=== PATIENT | male | born 1975 | race African-American/Black ===

== ENCOUNTER 2019-12-25 10:38 | Emergency (ER) | payer BC ==
[~2019-12-25] VITALS: Ht 170.2 cm; Wt 70.9 kg
[2019-12-25 10:42] VITALS: BP 190/107
--- NOTE | 2019-12-25 11:40 | PHYS DOC ---
Past History Past Medical History: No Pertinent History Past Surgical History: No Surgical History Smoking: Cigarettes Alcohol Use: Occasionally Drug Use: Marijuana General Adult EDM: Chief Complaint: UPPER EXTREMITY PAIN HPI: HPI: 44 year old male presents with report of pain to base of left thumb x 1 month. Reports initially punched a door which caused his hand to swell. Reports he never had the hand looked at. Reports swelling improved but still had pain to area. Reports worse when he has been working. Denies numbness. Denies recent trauma. Review of Systems: Review of Systems: Constitutional: Denies fever or chills Eyes: Denies redness or discharge HENT: Denies nasal congestion or sore throat Respiratory: Denies cough or shortness of breath Cardiovascular: Denies chest pain or palpitations GI: Denies abdominal pain, nausea, vomiting, or diarrhea : Denies dysuria or hematuria Musculoskeletal: Denies back pain; reports pain to base of left thumb Integument: Denies rash or skin lesion Neurologic: Denies headache, focal weakness or sensory changes Psychiatric: Denies depression or anxiety Complete systems were reviewed and found to be within normal limits, except as documented in this note. Current Medications: Current Meds: Current Medications Medications (Trade) Dose Ordered Sig/Karen Start Time Stop Time Status Last Admin Dose Admin Dexamethasone (Decadron) 10 mg 1X ONCE 12/25/19 11:15 12/25/19 11:16 UNV Physical Exam: PE: Constitutional: Well developed, well nourished, no acute distress, non-toxic appearance HENT: Normocephalic, atraumatic Eyes: Conjunctiva normal, no discharge Neck: Normal range of motion, no tenderness, supple Cardiovascular: Left radial pulse +2, CR < 2 sec Lungs & Thorax: No respiratory distress, equal chest rise and fall Skin: Warm, dry, no erythema, no rash Extremities: Left thumb pain on ROM. Interphalangeal tenderness, ROM intact, positive Ashley test Neurologic: Alert and oriented X 3, no focal deficits noted Psychologic: Affect normal, judgement normal EKG: EKG: [] Radiology/Procedures: Radiology/Procedures: PROCEDURE: HAND LEFT 3V Examination: HAND LEFT 3V History: Left thumb pain Comparison/Correlation: None Findings: 3 images of the left hand were obtained. Remodeling of the first carpometacarpal joint is notable. Remodeling in particular of the trapezium is present with spurring laterally. No displaced fracture or bone destruction. Soft tissues are unremarkable. Joint spaces otherwise unremarkable. Impression: Left first carpometacarpal joint degenerative findings are advanced for the patient's age. Electronically signed by: Lonnie Daugherty MD (12/25/2019 11:35 AM) [id number] Course & Med Decision Making: Course & Med Decision Making Pertinent Imaging studies reviewed. (See chart for details) Patient presents with 1 month history of pain to base of left thumb. Positive Ashley sign. Pain addressed. X-ray obtained without acute fracture or dislocation. Arthritis noted. Emeka bandage applied for comfort. Patient stable for discharge home with outpatient follow-up with PCP. Discussed findings and plan with patient, who acknowledges understanding and agreement. [email or web address] Disclaimer: Anastacio Disclaimer: This electronic medical record was generated, in whole or in part, using a voice recognition dictation system. Splinting Splinting : Location: left hand Pre-Made Type: EMEKA bandage Pre-Proc Neuro Vasc Exam: normal Post-Proc Neuro Vasc Exam: normal, unchanged from pre-exam Departure Departure: Impression: Primary Impression: Pain of left thumb Additional Impression: Arthritis Disposition: 01 HOME/RESIDENCE PRIOR TO ADM Condition: STABLE Referrals: PCP,NO (PCP) Patient Instructions: Arthritis, Nonspecific, [id number], De Quervain's Tenosynovitis-SportsMed Additional Instructions: ICE area 20 min on then leave off next 20 min. Repeat as needed for next few days. Take anti-inflammatories as needed. May also use over the counter Tylenol as needed. Wear EMEKA wrap or purchase thumb spica splint. Scripts Naproxen (NAPROXEN) 375 Mg Tablet. 375 MG PO TID PRN PRN for PAIN, #30 TAB Prov: ALVARO BOUCHER DO 12/25/19 ALVARO BOUCHER DO December 25, 2019 11:40
[2019-12-25] MEDS ORDERED: NAPR375T5 PO (11:46)
[2019-12-25] MEDS ORDERED: DEXAMETHASONE 4 MG TABLET PO ONE (12:00)
== END 2019-12-25 11:59 | disposition home or self-care (01) ==
LOC: ER 10:38
DX: M19.042 Primary osteoarthritis, left hand (principal); M79.645 Pain in left finger(s); F17.210 Nicotine dependence, cigarettes, uncomplicated
CPT/HCPCS: 29125; 73130; 99283; J8540

== ENCOUNTER 2020-06-01 14:19 | Emergency (ER) | payer BC ==
[~2020-06-01] VITALS: Ht 170.2 cm; Wt 76.5 kg
[~2020-06-01 14:19] MED LIST: NAPR375T5 PO
[2020-06-01] MEDS ORDERED: KETOROLAC 30 MG/ML VIAL. IVP ONE (14:45)
[2020-06-01] MEDS ORDERED: IV NORMAL SALINE 1,000ML 1,000 ML IV ONE (14:45)
[2020-06-01] MEDS ORDERED: ONDANSETRON PF 4 MG/2 ML VIAL. IVP ONE (14:45)
--- NOTE | 2020-06-01 14:53 | PHYS DOC ---
Past History Past Medical History: GERD Past Surgical History: No Surgical History Smoking: Cigarettes Alcohol Use: Occasionally Drug Use: Marijuana General Adult EDM: Chief Complaint: FLANK PAIN HPI: HPI: 44-year-old male presents with right flank pain. Patient woke up from sleep with right lower back pain. He was able to go back to sleep. Today it has moved around into the right flank. It comes and goes in waves. He cannot find a comfortable position sitting or lying. He denies fever chills. He denies dysuria. No history of kidney stones. He has had no other significant symptoms. He denies overuse, trauma, or fall. Review of Systems: Review of Systems: Constitutional: Denies fever or chills Eyes: Denies change in visual acuity HENT: Denies nasal congestion or sore throat Respiratory: Denies cough or shortness of breath Cardiovascular: Denies chest pain or edema GI: Denies abdominal pain, nausea, vomiting, bloody stools or diarrhea : Denies dysuria Musculoskeletal: Right flank pain Integument: Denies rash Neurologic: Denies headache, focal weakness or sensory changes Endocrine: Denies polyuria or polydipsia Lymphatic: Denies swollen glands Psychiatric: Denies depression or anxiety Current Medications: Current Meds: Current Medications Medications (Trade) Dose Ordered Sig/Karen Start Time Stop Time Status Last Admin Dose Admin Ketorolac Tromethamine (Toradol 30mg Vial) 30 mg 1X ONCE 06/01/20 14:45 06/01/20 14:46 Ondansetron HCl (Zofran) 4 mg 1X ONCE 06/01/20 14:45 06/01/20 14:46 Sodium Chloride 1,000 ml @ 1,000 mls/hr 1X ONCE 06/01/20 14:45 06/01/20 15:44 Allergies: Allergies: Allergies Coded Allergies Type Severity Reaction Last Updated Verified No Known Drug Allergies 12/25/19 No Physical Exam: PE: Constitutional: Well developed, well nourished, no acute distress, non-toxic appearance. [] HENT: Normocephalic, atraumatic, bilateral external ears normal, oropharynx moist, no oral exudates, nose normal. [] Eyes: PERRLA, EOMI, conjunctiva normal, no discharge. [] Neck: Normal range of motion, no tenderness, supple, no stridor. [] Cardiovascular:Heart rate regular rhythm, no murmur [] Lungs & Thorax: Bilateral breath sounds clear to auscultation [] Abdomen: Bowel sounds normal, soft, no tenderness, no masses, no pulsatile masses. [] Skin: Warm, dry, no erythema, no rash. [] Back: No tenderness, mild right sided CVA tenderness. [] Extremities: No tenderness, no cyanosis, no clubbing, ROM intact, no edema. [] Neurologic: Alert and oriented X 3, normal motor function, normal sensory function, no focal deficits noted. [] Psychologic: Affect normal, judgement normal, mood normal. [] Current Patient Data: Vital Signs: Vital Signs Date Time Temp Pulse Resp B/P (MAP) Pulse Ox O2 Delivery O2 Flow Rate FiO2 06/01/20 14:30 97.8 52 16 120/105 (110) 98 Room Air EKG: EKG: [] Radiology/Procedures: Radiology/Procedures: [] Impressions: CT abdomen and pelvis without contrast PQRS statement: CT scans at this facility use dose reduction including either automated exposure control, iterative reconstructions, and /or weight based radiation dosing via mA and kV modification when appropriate to reduce radiation dose to as low as reasonably achievable. HISTORY: Right flank pain. Abdomen findings: Lung bases unremarkable. Disc herniations lower lumbar spine largest at L5-S1 may contribute to mild canal stenosis. Aortoiliac calcified plaque. Small bilateral renal calculi versus renal vascular calcifications about the renal hilum. No ureteral calculi. No perinephric edema or hydronephrosis. Pancreas, spleen, liver, gallbladder and adrenal glands are unremarkable. Left colonic diverticulosis. Appendix is negative. No obstruction or inflammatory changes in GI tract. Pelvis findings: No bladder calculi. Prostate, rectum and bones are unremarkable. IMPRESSION: 1. No acute process. No obstructive uropathy. Appendix is negative. 2. Tiny calcifications at the bilateral renal mckayla likely renal vascular calcifications, small renal urinary calculi are less likely. No hydronephrosis or perinephric edema. 3. Lumbar disc disease. Electronically signed by: Porfirio Santacruz MD (06/01/2020 3:04 PM) [id number] DICTATED AND SIGNED BY: PORFIRIO SANTACRUZ MD DATE: 06/01/20 1504 CC: MARIE PETTY DO; PCP,NO ~ Heart Score: Risk Factors: Risk Factors: DM, Current or recent (<one month) smoker, HTN, HLP, family history of CAD, obesity. Risk Scores: Score 0 - 3: 2.5% MACE over next 6 weeks - Discharge Home Score 4 - 6: 20.3% MACE over next 6 weeks - Admit for Clinical Observation Score 7 - 10: 72.7% MACE over next 6 weeks - Early Invasive Strategies Course & Med Decision Making: Course & Med Decision Making Pertinent Labs and Imaging studies reviewed. (See chart for details) The patient's CT scan is negative for kidney stones in the ureters. There is a small 1 in the kidney. See official report for details. Patient's labs are unremarkable. His urinalysis is negative for infection. This could be musculoskeletal in nature. There is also a chance he passed a noncalcium stone. There is no hydronephrosis or signs of infection. He is stable for discharge at this time. [] Dragon Disclaimer: Dragon Disclaimer: This electronic medical record was generated, in whole or in part, using a voice recognition dictation system. Departure Departure: Impression: Primary Impression: Right flank pain Disposition: 01 DC HOME SELF CARE/HOMELESS Condition: STABLE Referrals: PCP,NO (PCP) MARIE PETTY DO Jun 01, 2020 14:53
--- NOTE | 2020-06-01 15:07 | RAD ---
CT abdomen and pelvis without contrast PQRS statement: CT scans at this facility use dose reduction including either automated exposure control, iterative reconstructions, and /or weight based radiation dosing via mA and kV modification when appropriate to reduce radiation dose to as low as reasonably achievable. HISTORY: Right flank pain. Abdomen findings: Lung bases unremarkable. Disc herniations lower lumbar spine largest at L5-S1 may contribute to mild canal stenosis. Aortoiliac calcified plaque. Small bilateral renal calculi versus renal vascular calcifications about the renal hilum. No ureteral calculi. No perinephric edema or hydronephrosis. Pancreas, spleen, liver, gallbladder and adrenal glands are unremarkable. Left colonic diverticulosis. Appendix is negative. No obstruction or inflammatory changes in GI tract. Pelvis findings: No bladder calculi. Prostate, rectum and bones are unremarkable. IMPRESSION: 1. No acute process. No obstructive uropathy. Appendix is negative. 2. Tiny calcifications at the bilateral renal mckayla likely renal vascular calcifications, small renal urinary calculi are less likely. No hydronephrosis or perinephric edema. 3. Lumbar disc disease. Electronically signed by: Richard Santacruz MD (06/01/2020 3:04 PM) [id number]
[2020-06-01 15:13] LABS: CALCIUM 8.9 mg/dL (8.5-10.1); GFR 99.2; POTASSIUM 4.2 mmol/L (3.5-5.1)
[2020-06-01 15:18] LABS: BASO # 0.1 x10^3/uL (0.0-0.2); BASO % 1 % (0-3); EOS # 0.1 x10^3/uL (0.0-0.7); EOS % 1 % (0-3); HEMOGLOBIN 14.5 g/dL (13.0-17.5); LYMPH # 2.1 x10^3/uL (1.0-4.8); LYMPH % 28 % (24-48); MEAN CORPUSCULAR HEMOGLOBIN 33 pg (25-35); MEAN CORPUSCULAR HGB CONC 33 g/dL (31-37); MEAN CORPUSCULAR VOLUME 100 fL (79-100); MONO # 0.5 x10^3/uL (0.0-1.1); MONO % 7 % (0-9); NEUT # 4.6 x10^3uL (1.8-7.7); NEUT % 62 % (31-73); PLATELET COUNT 242 x10^3/uL (140-400); RED BLOOD COUNT 4.41 x10^6/uL (4.30-5.70); RED CELL DISTRIBUTION WIDTH 13.5 % (11.5-14.5); WHITE BLOOD COUNT 7.4 x10^3/uL (4.0-11.0)
[2020-06-01 15:19] LABS: ALBUMIN 3.5 g/dL (3.4-5.0); TOTAL BILIRUBIN 1.1 mg/dL (0.2-1.0); TOTAL PROTEIN 6.9 g/dL (6.4-8.2)
[2020-06-01 15:46] VITALS: BP 187/80
[2020-06-01 16:13] LABS: BILIRUBIN,URINE NEG (NEG); CLARITY,URINE CLEAR; COLOR,URINE AMBER; GLUCOSE,URINE NEG (NEG); UROBILINOGEN,URINE 0.2 mg/dL (0.2 mg/dL)
[2020-06-01 16:14] LABS: BACTERIA,URINE 0 /HPF (0-FEW); NITRITE,URINE NEG (NEG); RBC,URINE 0 /HPF (0-2); SQUAMOUS EPITHELIAL CELL,UR OCC /LPF
== END 2020-06-01 16:20 | disposition home or self-care (01) ==
LOC: ER 14:19
DX: R10.9 Unspecified abdominal pain (principal); M54.5 Low back pain; K21.9 Gastro-esophageal reflux disease without esophagitis; F17.210 Nicotine dependence, cigarettes, uncomplicated; F12.10 Cannabis abuse, uncomplicated
CPT/HCPCS: 36415; 74176; 80053; 81001; 85025; 96361; 96374; 96375; 99284; J1885; J2405; J7030

== ENCOUNTER 2021-04-18 18:04 | Emergency (ER) | payer BC, OTHER ==
[~2021-04-18] VITALS: Ht 170.2 cm; Wt 76.5 kg
[2021-04-18] MEDS ORDERED: ASPIRIN CHEWABLE 81 MG TABLET. ONE (18:40)
[2021-04-18] MEDS ORDERED: ASPIRIN CHEWABLE 81 MG TABLET. PO ONE (18:45)
[2021-04-18 18:49] LABS: BASO # 0.1 x10^3/uL (0.0-0.2); BASO % 1 % (0-3); EOS # 0.1 x10^3/uL (0.0-0.7); EOS % 1 % (0-3); HEMATOCRIT 43.8 % (39.0-53.0); HEMOGLOBIN 14.8 g/dL (13.0-17.5); LYMPH # 2.3 x10^3/uL (1.0-4.8); LYMPH % 24 % (24-48); MEAN CORPUSCULAR HEMOGLOBIN 33 pg (25-35); MEAN CORPUSCULAR HGB CONC 34 g/dL (31-37); MEAN CORPUSCULAR VOLUME 99 fL (79-100); MONO # 0.8 x10^3/uL (0.0-1.1); MONO % 8 % (0-9); NEUT # 6.4 x10^3uL (1.8-7.7); NEUT % 66 % (31-73); PLATELET COUNT 386 x10^3/uL (140-400); RED BLOOD COUNT 4.44 x10^6/uL (4.30-5.70); RED CELL DISTRIBUTION WIDTH 13.7 % (11.5-14.5); WHITE BLOOD COUNT 9.8 x10^3/uL (4.0-11.0)
[2021-04-18 18:55] LABS: CALCIUM 9.4 mg/dL (8.5-10.1); CREATININE 1.3 mg/dL (0.7-1.3); GFR 72.9; POTASSIUM 4.5 mmol/L (3.5-5.1)
[2021-04-18 18:56] LABS: MAGNESIUM 2.3 mg/dL (1.8-2.4)
--- NOTE | 2021-04-18 19:16 | PHYS DOC ---
Past History Past Medical History: GERD Past Surgical History: No Surgical History Smoking: Cigarettes Alcohol Use: Occasionally Drug Use: Marijuana Adult General Chief Complaint Chief Complaint: CHEST PAIN HPI HPI Patient is a 45-year-old male with no medical problems who presents to the emergency department with a chief complaint of chest and arm pain over the last 2 weeks. States it started on his left side with some aching of his arm, 3 out of 10, dull and achy in nature and then over the last for 5 days has had intermittent, sharp, centralized chest pain, 5 out of 10 in nature, with no radiation. Denies any dyspnea on exertion, orthopnea, PND or edema. Denies any identifiable aggravating or alleviating factors. Is not predictable. Denies any significant early family history of cardiovascular disease. Patient does smoke cigarettes however. Denies any alcohol or drug use. States he does exercise frequently. States right now he has no symptoms. States he did not have a physician and would like to have 1. Review of Systems Review of Systems Review of systems otherwise unremarkable except noted in HPI Current Medications Current Medications Current Medications Medications (Trade) Dose Ordered Sig/Karen Start Time Stop Time Status Last Admin Dose Admin Aspirin (Aspirin Chewable) 81 mg STK-MED ONCE 04/18/21 18:40 04/18/21 18:40 DC Allergies Allergies Allergies Coded Allergies Type Severity Reaction Last Updated Verified No Known Drug Allergies 04/18/21 No Physical Exam Physical Exam Constitutional: Well developed, well nourished, no acute distress, non-toxic appearance. [] HENT: Normocephalic, atraumatic, bilateral external ears normal, oropharynx moist, no oral exudates, nose normal. [] Eyes: PERRLA, EOMI, conjunctiva normal, no discharge. [] Neck: Normal range of motion, no tenderness, supple, no stridor. [] Cardiovascular:Heart rate regular rhythm, no murmur [] Lungs & Thorax: Bilateral breath sounds clear to auscultation [] Abdomen: soft, no tenderness, no masses, no pulsatile masses. [] Skin: Warm, dry, no erythema, no rash. [] Back: No tenderness, no CVA tenderness. [] Extremities: No tenderness, ROM intact, no edema. [] Neurologic: Alert and oriented X 3, normal motor function, normal sensory function, no focal deficits noted. [] Psychologic: Affect normal, judgement normal, mood normal. [] Current Patient Data Lab Results Laboratory Tests Test 04/18/21 18:15 White Blood Count 9.8 x10^3/uL (4.0-11.0) Red Blood Count 4.44 x10^6/uL (4.30-5.70) Hemoglobin 14.8 g/dL (13.0-17.5) Hematocrit 43.8 % (39.0-53.0) Mean Corpuscular Volume 99 fL (79-100) Mean Corpuscular Hemoglobin 33 pg (25-35) Mean Corpuscular Hemoglobin Concent 34 g/dL (31-37) Red Cell Distribution Width 13.7 % (11.5-14.5) Platelet Count 386 x10^3/uL (140-400) Neutrophils (%) (Auto) 66 % (31-73) Lymphocytes (%) (Auto) 24 % (24-48) Monocytes (%) (Auto) 8 % (0-9) Eosinophils (%) (Auto) 1 % (0-3) Basophils (%) (Auto) 1 % (0-3) Neutrophils # (Auto) 6.4 x10^3uL (1.8-7.7) Lymphocytes # (Auto) 2.3 x10^3/uL (1.0-4.8) Monocytes # (Auto) 0.8 x10^3/uL (0.0-1.1) Eosinophils # (Auto) 0.1 x10^3/uL (0.0-0.7) Basophils # (Auto) 0.1 x10^3/uL (0.0-0.2) Sodium Level 139 mmol/L (136-145) Potassium Level 4.5 mmol/L (3.5-5.1) Chloride Level 101 mmol/L (98-107) Carbon Dioxide Level 32 mmol/L (21-32) Anion Gap 6 (6-14) Blood Urea Nitrogen 11 mg/dL (8-26) Creatinine 1.3 mg/dL (0.7-1.3) Estimated GFR (Cockcroft-Gault) 72.9 Glucose Level 75 mg/dL (70-99) Calcium Level 9.4 mg/dL (8.5-10.1) Magnesium Level 2.3 mg/dL (1.8-2.4) EKG EKG [] Radiology/Procedures Radiology/Procedures [] Heart Score C/O Chest Pain: Yes HEART Score for Chest Pain: HEART Score for Chest Pain Response (Comments) Value History Slighlty/Non-Suspicious 0 ECG Normal 0 Age < 45 0 Risk Factors 1 or 2 Risk Factors 1 Troponin < Normal Limit 0 Total 1 Risk Factors: Risk Factors: DM, Current or recent (<one month) smoker, HTN, HLP, family history of CAD, obesity. Risk Scores: Risk Factors: DM, Current or recent (<one month) smoker, HTN, HLP, family history of CAD, obesity. Course & Med Decision Making Course & Med Decision Making Patient is a 45-year-old male who presents with a chief complaint of 2 weeks of intermittent sharp chest pain Vital signs notable for hypertension. Physical exam noted above. Patient given aspirin. EKG noted above normal. Troponin normal. Low risk Wells. PERC negative. Chest x-ray not concerning. Heart score of 1 for smoking. Laboratory analysis not concerning. Discussed all findings with patient and recommended follow-up with a primary care physician first thing Tuesday to discuss ED visit and set up a follow-up for continued evaluation and treatment and possibly a stress test if needed. Gastric return precautions to the ED. Patient grateful, verbalized understanding agree with plan of discharge. [] Dragon Disclaimer Dragon Disclaimer This electronic medical record was generated, in whole or in part, using a voice recognition dictation system. Departure Departure: Impression: Primary Impression: Chest pain Additional Impression: Hypertension Disposition: HOME / SELF CARE / HOMELESS Condition: GOOD Referrals: PCP,NO (PCP) RADHA KIMBROUGH MD Patient Instructions: Chest Pain (Nonspecific) Additional Instructions: Thank you for coming into the emergency department tonight and allowing us to take care of you. Please read the attached information carefully to go back over things we discussed. Please cease smoking cigarettes as we discussed due to the risks. Please follow-up with your primary care physician first thing Tuesday morning to establish care, and set up a follow-up visit for continued evaluation and treatment and possibly a stress test and management of your hypertension. Please come back to the ED with new or concerning symptoms as discussed. Problem Qualifiers CORBY CRONIN MD Apr 18, 2021 19:15
[2021-04-18 19:28] VITALS: BP 153/76
--- NOTE | 2021-04-18 19:30 | RAD ---
Study: XR CHEST 1V Indication: Chest pain. Comparison: None. Findings: Within normal limits cardiomediastinal silhouette and mckayla. No localized infiltrate, pleural effusion or pneumothorax. Undulation of the diaphragm without asymmetric elevation. Impression: No acute radiographic abnormality of the chest. Electronically signed by: ALEX BRUCE MD (04/18/2021 7:27 PM) [facility]
--- NOTE | 2021-04-19 06:36 | EKG ---
[address] [address] Test Date: 2021-04-18 Test Time: 18:11:29 Pat Name: FAM REYES Department: Room: Gender: M [employer]: BRYAN : 1975 Requested By: CORBY CRONIN Order Number: [id number] Reading MD: Measurements Intervals [place] Rate: 79 P: 51 VA: 142 QRS: 52 QRSD: 84 T: 51 QT: 392 QTc: 451 Interpretive Statements SINUS RHYTHM NORMAL ECG RI6.02 No previous ECG available for comparison
== END 2021-04-18 19:29 | disposition home or self-care (01) ==
LOC: ER 18:04
DX: R07.89 Other chest pain (principal); I10 Essential (primary) hypertension; K21.9 Gastro-esophageal reflux disease without esophagitis; F17.210 Nicotine dependence, cigarettes, uncomplicated
CPT/HCPCS: 36415; 71045; 80048; 83735; 84484; 85025; 93005; 99285